=== PATIENT | male | born 1980 | race Caucasian/White ===

== ENCOUNTER 2022-03-27 12:16 | Emergency (ER) | payer SELFPAY ==
[~2022-03-27] VITALS: Ht 165.1 cm; Wt 104.3 kg
[2022-03-27] MEDS ORDERED: TDAP [DIPH/PERTUSSIS/TET] 0.5 ML VIAL IM ONE ×2 (13:00→13:03)
[2022-03-27] MEDS ORDERED: ACETAMINOPHEN ES 500 MG TABLET PO ONE (13:00)
[2022-03-27] MEDS ORDERED: ACETAMINOPHEN ES 500 MG TABLET ONE (13:02)
--- NOTE | 2022-03-27 15:18 | NUR ---
LA MANNY CALLED [phone] ERICKSON. [employer] [facility] WILL BE PAGED PER LUIS F.
[2022-03-27] MEDS ORDERED: HYDR-3980 PO (16:31)
[2022-03-27] MEDS ORDERED: HYDROCODONE/APAP 10/325MG TABLET ONE (16:37)
--- NOTE | 2022-03-27 16:40 | NUR ---
NORCO ADMINISTERED INDICATED, TAKEN WELL
--- NOTE | 2022-03-27 16:43 | NUR ---
TECH AT BEDSIDE FOR SPLINT APPLICATION ON LFA
[2022-03-27] MEDS ORDERED: HYDROCODONE/APAP 10/325MG TABLET PO ONE (17:00)
--- NOTE | 2022-03-27 17:06 | NUR ---
Patient discharged to home in stable condition. Written and verbal after care instructions given. Patient verbalizes understanding of instruction.
[2022-03-27 17:08] VITALS: BP 128/83
== END 2022-03-27 17:09 | disposition home or self-care (01) ==
LOC: ER 12:18
DX: S52.592A Other fractures of lower end of left radius, initial encounter for closed fracture (principal); R07.81 Pleurodynia; M25.562 Pain in left knee; W13.2XXA Fall from, out of or through roof, initial encounter; Y93.89 Activity, other specified; Y92.89 Other specified places as the place of occurrence of the external cause; Y99.8 Other external cause status
CPT/HCPCS: 71045-TC; 73110; 73564-TC; 90715